=== PATIENT | female | born 1940 | race Caucasian/White ===

== ENCOUNTER 2017-11-13 13:32 | Emergency (ER) | payer MEDICARE, OTHER, SELFPAY ==
--- NOTE | 2017-11-13 13:35 | ED.GENADUL ---
Disposition Clinical Impression: Hand laceration Disposition: HOME Condition: Fair Instructions: Laceration (ED) Additional Instructions: Keep wound clean, dry, covered. Tylenol and/or ibuprofen as needed for discomfort. Keep current dressing on for the next 48 hours. After that time he may change but please keep covered with a sterile dressing. You may wash with running water but do not soak or submerge this will increase her risk of infection. Please monitor for signs of infection including redness, warmth, drainage, fever/chills, increased pain. If these arise please seek care urgently once again. Please take antibiotics as prescribed. Even if symptoms do not take the entire course. Please follow-up with primary care for wound evaluation. Please return in 10 days for suture removal. Prescriptions: Cephalexin [Keflex] 500 mg PO BID #10 cap Referrals: Carlos Bustamante [Primary Care Provider] - [facility] Emergency Dept. [Outside] Medical Decision Making - Medical Decision Making Patient presents today with chief complaint of laceration to the dorsal aspect of left hand. Patient does have a skin tear. The surrounding tissue, particularly distally is noted to be quite thin. I voiced my concern for the viability of this tissue. However, more proximal a 2.5 cm length of extensor tendon is visualized. Tendon appears to be intact. She does have good extension against resistance of the affected digits. No sensation deficit. Range of motion of the wrist is intact. Flap is irregular in shape, 9 cm in total. Tetanus 2013. I do not see any bony involvement. Patient and I discussed the risk/benefits as well as expected procedural steps of closure. She was understanding and wishes to proceed. Procedure note: Using standard sterile technique, 2% lidocaine plain was used to anesthetize the area. A total of 10 cc was used the wound is then copiously irrigated with sterile saline and cleansed chlorhexidine. Wound was explored to base in a bloodless field. No foreign body or debris was noted. The flaps were realigned. #13 simple interrupted sutures were placed using 5-0 nylon. Patient tolerated this well. Patient tolerated procedure well. Sterile dressing was placed by nursing staff. Compressive dressing was placed over this. I am concerned that she was to develop a hematoma under the area it may further contribute to poor viability of the affected flap. I thus far for her to follow-up with primary care next week. She will return in 10 days for suture removal. Encourage rest and elevation of the extremity. Tylenol and/or ibuprofen as needed for discomfort. We discussed care of wound. We discussed activities that she should avoid it that will place undue stress on the wound and place her at high risk for infection. We discussed signs symptoms of infection in depth and when to seek care urgently once again. We discussed the need for her to wear gloves. Given the depth of the wound and and how this was sustained, I feel that antibiotics is appropriate at this time. Patient will be placed on oral Keflex. All of her questions and concerns were addressed and she is in agreement with this plan. History of Present Illness - General Stated complaint: LEFT HAND LACERATION Time Seen by Provider: 11/13/17 13:34 Source: patient, RN notes reviewed Mode of arrival: ambulatory Limitations: no limitations - History of Present Illness Initial comments: Patient is a 77-year-old [id number] female presenting today with chief complaint of laceration to the dorsal aspect of her left hand. She reports a prior to arrival while working with her goat, ago caught her with a horn causing shearing injury to the hand. Patient immediately noted tendon under the torn back skin. She denies any altered sensation. She feels she is good range of motion. States that she feels swollen around the area and into the dorsal aspect of the wrist. Denies other injury the time of the incident. Unknown tetanus status - Related Data Calcium Citrate/Vitamin D2 [Calcium Citrate with Vit D Tab] 1 each PO DAILY 09/27/12 Multivitamin [Multivitamins] 1 each PO DAILY 09/27/12 Fluticasone Propionate [Flonase] 16 gm NS BID PRN #1 script 06/04/15 Acetaminophen 1 tab PO tid prn 10/16/15 Nystatin Powder 60 GM [Mycostatin Powder] 1 gm TP BID PRN #60 gm 07/09/16 Cholecalciferol (Vitamin D3) [Vitamin D3] 2,000 unit PO BID 12/22/16 Cyanocobalamin (Vitamin B-12) [Vitamin B12] 2,500 mcg PO DAILY 12/22/16 Omeprazole 40 mg PO DAILY@0730 #90 capcr 02/09/17 Ranitidine HCl 300 mg PO HS #90 tab 02/09/17 Oxybutynin Chloride 5 mg PO HS #90 tab-cap 04/07/17 Paroxetine HCl [Paxil] 20 mg PO DAILY #90 tab-cap 04/07/17 Pravastatin Sodium 20 mg PO DAILY #90 tab-cap 04/07/17 Cephalexin 2,000 mg PO ONCE #4 tab-cap 09/29/17 Gabapentin 600 mg PO TID #270 tab-cap 09/29/17 Losartan [Cozaar] 100 mg PO DAILY #90 tab-cap 09/29/17 Cephalexin [Keflex] 500 mg PO BID #10 cap 11/13/17 Allergies Allergy/AdvReac Type Severity Reaction Status Date / Time Penicillins Allergy Unknown SKIN RASH Unverified 11/13/17 13:40 Review of Systems Constitutional: no symptoms reported Respiratory: no symptoms reported Musculoskeletal: as per HPI Skin: as per HPI Neurological: as per HPI Past Medical History - Past Medical History Surgery CKD, depression, diabetes, hypertension, murmur, hyperlipidemia, reflux, adenoma of colon, anemia, goiter Surgical history: other (Bilateral TKA) General Exam - General Limitations: no limitations General appearance: alert, in no apparent distress - Eye Eye exam: Present: normal apperance - Respiratory Respiratory exam: Present: normal lung sounds bilaterally. Absent: respiratory distress - Cardiovascular Cardiovascular Exam: Present: regular rate, normal rhythm, normal heart sounds - Extremities Exam Extremities exam: Present: full ROM, tenderness, normal capillary refill. Absent: normal inspection (Exam of the patient's left upper extremity is significant for a anterior to the dorsal aspect of the hand. Laceration is approximately 9 cm in length. Wound is a flap with fairly thin wound edges particularly distally. Exam concern for viability of the tissues already darkening. Extensor tendon of the index finger is easily visualized in the open wound. She does have good extension of the MCP, DIP and PIP against resistance of the afflicted finger. Sensation is intact in the hand. She is full range of motion in the wrist. No surrounding erythema. No discharge. Wound is not actively bleeding.), joint swelling - Neurological Exam Neurological exam: Present: alert, normal gait. Absent: motor sensory deficit - Psychiatric Psychiatric exam: Present: normal affect, normal mood - Skin Skin exam: Absent: intact (As above)
[2017-11-13 13:37] VITALS: BP 169/63; PULSE 75; RESP 18; TEMP 36.7; O2SAT 97
--- NOTE | 2017-11-13 16:58 | NUR.NOTE ---
Nursing Note: Patient continues to deny return of mid-sternal pressure/pain. No SOB, no nausea, VSS. Afib with occasional PVC's. Skin warm/dry/pink. Aware of pending admission to [facility]
== END 2017-11-13 16:31 | disposition home or self-care (01) ==
PROVIDERS: Emergency Provider Emergency Medicine; PCP Family Medicine
DX: S61.412A Laceration without foreign body of left hand, initial encounter (principal); W55.39XA Other contact with other hoof stock, initial encounter; E11.22 Type 2 diabetes mellitus with diabetic chronic kidney disease; I12.9 Hypertensive chronic kidney disease with stage 1 through stage 4 chronic kidney disease, or unspecified chronic kidney disease; N18.9 Chronic kidney disease, unspecified; Z96.653 Presence of artificial knee joint, bilateral
CPT/HCPCS: 12004 ×2; 99283 ×2

== ENCOUNTER 2017-11-23 09:11 | Emergency (ER) | payer MEDICARE, OTHER, SELFPAY ==
[2017-11-23 09:14] VITALS: BP 116/57; PULSE 55; RESP 16; TEMP 36.8; O2SAT 94
--- NOTE | 2017-11-23 09:45 | W.ED.GENAD ---
Discharge Plan Discharge Details Chief Complaint: SutureRem Clinical Impression: Encounter for removal of sutures Reason For Visit: SUTURE REMOVAL Primary Care Provider: Carlos Bustamante ED Provider: Diane Andrews Disposition Patient Disposition: HOME Condition: Stable Home Meds and New Rx's Prescriptions: Continue multivitamin 1 EACH tablet 1 ea PO DAILY RF: 0 calcium citrate-vitamin D2 1 EACH tablet 1 ea PO DAILY RF: 0 fluticasone 16 GM spray,suspension 16 gm NS BID PRNQty: 1 RF: 4 acetaminophen 500 MG tablet 1 tab PO tid prn RF: 0 nystatin 60 GM powder 1 gm Topical BID PRNQty: 60 RF: 3 cholecalciferol (vitamin D3) [Vitamin D3] 2,000 UNIT capsule 2,000 unit PO BID RF: 0 cyanocobalamin (vitamin B-12) 2,500 MCG tablet 2,500 mcg PO DAILY RF: 0 ranitidine HCl 300 MG tablet 300 mg PO HS Qty: 90 RF: 3 omeprazole 40 MG capsule,delayed release(DR/EC) 40 mg PO DAILY@0730 Qty: 90 RF: 3 paroxetine HCl [Paxil] 20 MG tablet 20 mg PO DAILY Qty: 90 RF: 4 pravastatin 20 MG tablet 20 mg PO DAILY Qty: 90 RF: 3 oxybutynin chloride 5 MG tablet 5 mg PO HS Qty: 90 RF: 4 gabapentin 600 MG tablet 600 mg PO TID Qty: 270 RF: 1 losartan 100 MG tablet 100 mg PO DAILY Qty: 90 RF: 3 ciprofloxacin HCl [Cipro] 500 MG tablet 500 mg PO BID 10 Days Qty: 20 RF: 0 doxycycline hyclate 100 MG capsule 100 mg PO BID Qty: 14 RF: 0 Discontinued cephalexin 500 MG tablet 2,000 mg PO ONCE Qty: 4 RF: 0 Discharge Instructions Instructions: Laceration (ED), Stitches Removal (ED) Additional Instructions: Please return immediately to the emergency department if you develop any new or worsening symptoms or should become otherwise concerned. It is extremely important that you finish your current course of antibiotics. Is also extremely important that you follow-up with your primary care doctor within 1-2 weeks as we discussed Referrals: Carlos Bustamante [Primary Care Provider] - Discharge Data Discharge Date/Time-TO BE ENTERED AT DEPARTURE: 11/23/17 10:04 Medical Decision Making MDM Narrative Medical decision making narrative: Norma Kemp is a 77 y/o woman with h/o DM, HTN, HLD, CKD presenting to the emergency department for suture removal after laceration repair from wound from goat horn on 11/13, currently taking doxy/cipro for wound-related cellulitis. On exam no evidence of nerve injury, abscess, worsening infection, wound dehiscence. 13 sutures removed without issue. Lengthy discussion with Pt re: RTED precautions and importance of outpt f/u with PCP and finishing current course of abxs. Pt is amenable to the plan. Medical Records Medical records reviewed: Yes I reviewed the patient's medical records. HPI - General Adult General Mode of arrival: ambulatory. Date/Time Provider Initiated Documentation: 11/23/17 09:31. Limitations to Documentation: no limitations. Information obtained by: patient, RN notes reviewed and old records reviewed. HPI Narrative-FOR DICTATION ONLY HPI Narrative: Norma Kemp is a 77 y/o woman with h/o NIDDM, HTN, HLD, CKD presenting to the emergency department for suture removal. Pt reports that she was seen here on 11/13 for laceration of her left hand she sustained from a horn of her goat while caring for it. There were no other injuries. Pt was placed on keflex and had 13 sutures placed. Pt reports that after laceration repair she noticed mild increasing redness around the wound. She was seen several days after wound repair in follow-up by her PCP, who discontinued keflex and started cipro/doxy out of concern for early cellulitis with wound from goat. Pt reports that since change in abx she has been doing well. Redness has been improving. She has had no pain or drainage from the wound. No n/t or weakness of the digits. She has felt overall very well with no fever or other systemic symptoms. Has a few days left of cipro/doxy rxs, which she has bee taking as prescribed. Related Data Home Medications Medication Instructions Recorded Confirmed calcium citrate-vitamin D2 1 ea PO DAILY 09/27/12 11/23/17 multivitamin 1 ea PO DAILY 09/27/12 11/23/17 acetaminophen 1 tab PO tid prn 10/16/15 11/23/17 cholecalciferol (vitamin D3) 2,000 unit PO BID 12/22/16 11/23/17 [Vitamin D3] cyanocobalamin (vitamin B-12) 2,500 mcg PO DAILY 12/22/16 11/23/17 Allergies Allergy/AdvReac Type Severity Reaction Status Date / Time Penicillins Allergy Unknown SKIN RASH Unverified 11/23/17 09:23 clindamycin AdvReac Intermediate Diarrhea Unverified 11/23/17 09:23 General Stated Complaint: SutureRem MAGI: 5 Review of Systems Constitutional Denies fever(s) Eyes Patient Denies eye pain ENT Denies facial pain and Denies neck pain Cardiovascular Denies chest pain and Denies dyspnea Respiratory Denies cough and Denies dyspnea Gastrointestinal Denies abdominal pain, Denies diarrhea and Denies vomiting Musculoskeletal Denies back pain, Denies myalgias, Denies arthralgias, Denies neck pain, Denies numbness and Denies tingling Integumentary/Breasts Denies rash Neurologic Denies focal weakness, Denies numbness and Denies tingling Endocrine Denies polyphagia and Denies polydipsia PFSH Family History Mother Essential hypertension Pulmonary emphysema Asthma Father Essential hypertension Personal history of malignant neoplasm Hypercholesterolemia Hyperlipidemia Sister Personal history of malignant neoplasm Cerebrovascular accident Brother Essential hypertension Heart disease Hypercholesterolemia Hyperlipidemia Grandfather Heart disease Grandfather Heart disease Grandmother Diabetes Heart disease Grandmother Essential hypertension Heart disease Hyperlipidemia Cerebrovascular accident Medical History Anemia Cataracts, bilateral Depression Diabetes type 2, controlled Heart murmur Hyperlipidemia Hypertension Morbid obesity with BMI of 40.0-44.9, adult Multinodular goiter Renal insufficiency Rhinitis Rosacea Urge incontinence of urine Social History Smoking/Tobacco Use Status: Former Tobacco Use Surgical History Colonoscopy - MAC (01/07/16) EGD - MAC (01/07/16) Extraction of cataract Ligation of fallopian tube (~1970) Replacement of total knee joint Tonsillectomy (~194) eye laser surgery (08/03/15) Exam Const General: cooperative, healthy appearing, comfortable, no acute distress and not ill appearing Orientation: alert and awake [facility] Head: normal to inspection, normocephalic and atraumatic Mouth: moist mucous membranes Eyes Conjunctivae: conjunctivae normal Sclera: sclerae normal Pupils: pupil size (3mm) bilaterally Neck Neck: normal visual inspection and trachea midline Resp Effort & Inspection: normal respiratory effort and able to speak in complete sentences Auscultation: clear to auscultation bilaterally Cardio Rate: regular rate Rhythm: regular rhythm Heart Sounds: no murmurs Skin Other: Left palm wound with sutures intact. 3mm surrounding erythema, Pt reports as much improved from prior. No drainage, fluctuance, edema. Neuro General: alert and awake Other: grossly non-focal Psych Appearance: grossly normal Mental Status: mental status grossly normal Mood: congruent mood Affect: normal affect Course Vital Signs Temperature 36.8 C 11/23/17 09:14 Pulse 55 L 11/23/17 09:14 Respiratory Rate 16 11/23/17 09:14 Blood Pressure 116/57 L 11/23/17 09:14 Pulse Oximetry 94 L 11/23/17 09:14 Temperature 36.8 C 11/23/17 09:14 Pulse 55 L 11/23/17 09:14 Respiratory Rate 16 11/23/17 09:14 Blood Pressure 116/57 L 11/23/17 09:14 Pulse Oximetry 94 L 11/23/17 09:14
== END 2017-11-23 10:04 | disposition home or self-care (01) ==
PROVIDERS: Emergency Provider Student in an Organized Health Care Education/Training Program; PCP Family Medicine
DX: S61.412A Laceration without foreign body of left hand, initial encounter (principal); W55.39XA Other contact with other hoof stock, initial encounter; Z48.02 Encounter for removal of sutures; E11.22 Type 2 diabetes mellitus with diabetic chronic kidney disease; I12.9 Hypertensive chronic kidney disease with stage 1 through stage 4 chronic kidney disease, or unspecified chronic kidney disease; N18.9 Chronic kidney disease, unspecified

== ENCOUNTER 2017-12-29 08:44 | Outpatient (CLI) | payer MEDICARE, OTHER, SELFPAY ==
[2017-12-29 11:23] LABS: HCT 37.6 % (36.0-46.0); HGB 12.2 g/dL (12.0-15.5); Mean Corp. HGB Concentration 32.4 g/dL (32.0-36.0); Mean Corpuscular Hemoglobin 30.3 pg (27.0-33.0); Mean Corpuscular Volume 93.3 fL (80-95); Mean Platelet Volume 11.4 fL (8.0-11.0); Platelet Count 214 x1000/uL (130-400); RBC 4.03 m/cumm (4.00-5.20); RBC Distribution Width 12.5 % (11.7-14.6); White Blood Cell Count 5.38 k/cumm (4.4-10.8)
[2017-12-29 11:38] LABS: CREATININE 1.15 mg/dL (0.55-1.02); Estimated GFR 45.64 (mL/min/1.73m2); Magnesium 2.4 mg/dL (1.8-2.4)
== END 2017-12-29 09:04 ==
PROVIDERS: PCP Family Medicine; Visit Provider Family Medicine
DX: M25.531 Pain in right wrist (principal); M25.532 Pain in left wrist; R53.83 Other fatigue; K21.0 Gastro-esophageal reflux disease with esophagitis
CPT/HCPCS: 36415; 85027; 82565; 83735

== ENCOUNTER 2018-06-29 09:49 | Outpatient (CLI) | payer MEDICARE, OTHER, SELFPAY ==
[2018-06-29 12:48] LABS: Hemoglobin A1C 6.9 % (4.5-6.2)
[2018-06-29 12:50] LABS: Cholesterol 182 mg/dL (50-200); HDL Cholesterol 46 mg/dL (40-60); LDL CHOLESTEROL 109 mg/dL (<100); Potassium 4.6 mmol/L (3.5-5.1); Triglyceride 131 mg/dL (30-150)
== END 2018-06-29 10:09 ==
PROVIDERS: PCP Family Medicine; Visit Provider Family Medicine
DX: E11.9 Type 2 diabetes mellitus without complications (principal)
CPT/HCPCS: 36415; 80061; 83721; 83036; 84132

== ENCOUNTER 2018-07-02 19:21 | Emergency (ER) | payer MEDICARE, OTHER, SELFPAY ==
[2018-07-02 19:27] VITALS: BP 211/50; PULSE 62; RESP 20; TEMP 36.6; O2SAT 98
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
--- NOTE | 2018-07-02 20:09 | DI.CT_ITS ---
SYMPTOM./DIAGNOSIS: ANTERIOR FACIAL INJURY, PAIN NONCONTRAST HEAD CT: A noncontrast cranial CT was performed. There is a large scalp hematoma frontally and there is moderately displaced nasal fracture. Please see accompanying maxillofacial CT. The orbital structures appear intact. There is no evidence of acute intracranial hemorrhage, mass effect or midline shift. No calvarial fracture identified. Mastoid air cells and paranasal sinuses are clear. CONCLUSION: No evidence of acute intracranial injury. MAXILLOFACIAL CT: CT examination of the maxillofacial region was performed utilizing multi slice imaging and multi planar reconstruction. There is a moderately displaced nasal fracture. No additional facial fracture identified. Orbital sidhu and orbital contents appear intact. Paranasal sinuses are well aerated. Mandible appears intact. Visualized tracheolaryngeal structures appear intact. CONCLUSION: Nasal fracture. No acute facial fracture seen.
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
== END 2018-07-02 21:03 | disposition home or self-care (01) ==
PROVIDERS: Emergency Provider Emergency Medicine; PCP Family Medicine
DX: S02.2XXA Fracture of nasal bones, initial encounter for closed fracture (principal); S00.03XA Contusion of scalp, initial encounter; S00.432A Contusion of left ear, initial encounter; W55.32XA Struck by other hoof stock, initial encounter
CPT/HCPCS: 99284; 70450; 70486

== ENCOUNTER 2018-12-28 13:10 | Outpatient (CLI) | payer MEDICARE, OTHER, SELFPAY ==
[2018-12-28 13:59] LABS: Hemoglobin A1C 6.6 % (4.5-6.2)
[2018-12-28 14:36] LABS: CREATININE 1.33 mg/dL (0.55-1.02); Estimated GFR 38.49 (mL/min/1.73m2)
== END 2018-12-28 13:30 ==
PROVIDERS: PCP Family Medicine; Visit Provider Family Medicine
DX: E11.9 Type 2 diabetes mellitus without complications (principal); I10 Essential (primary) hypertension
CPT/HCPCS: 36415; 82565; 83036

== ENCOUNTER 2019-04-05 10:57 | Outpatient (CLI) | payer MEDICARE, OTHER, SELFPAY ==
[2019-04-05 13:06] LABS: Abs Immature Grans 0.01 k/cumm (0.0-0.09); Absolute Basophil Count 0.03 k/cumm (0.0-0.2); Absolute Eosinophil Count 0.15 k/cumm (0.0-0.7); Absolute Lymphocyte Count 0.94 k/cumm (1.2-3.4); Absolute Monocyte Count 0.54 k/cumm (0.11-0.7); Absolute Neutrophil Count 2.64 k/cumm (1.2-6.7); Basophils % 0.7; Eosinophils % 3.5; HCT 35.6 % (36.0-46.0); HGB 11.2 g/dL (12.0-15.5); Immature Grans % 0.2 %; Lymphocytes % 21.8; Mean Corp. HGB Concentration 31.5 g/dL (32.0-36.0); Mean Corpuscular Hemoglobin 29.2 pg (27.0-33.0); Mean Corpuscular Volume 92.7 fL (80-95); Mean Platelet Volume 10.8 fL (8.0-11.0); Monocytes % 12.5; Neutrophils % 61.3; Platelet Count 167 x1000/uL (130-400); RBC 3.84 m/cumm (4.00-5.20); RBC Distribution Width 12.8 % (11.7-14.6); White Blood Cell Count 4.31 k/cumm (4.4-10.8)
[2019-04-05 13:32] LABS: ALT 30 U/L (14-59); AST 19 U/L (15-37); Albumin 3.6 g/dL (3.4-5.0); Alkaline Phosphatase 91 U/L (46-116); BUN 27 mg/dL (7-18); Bilirubin, Total 0.3 mg/dL (0.2-1.0); CREATININE 1.21 mg/dL (0.55-1.02); Chloride 108 mmol/L (98-107); Estimated GFR 42.92 (mL/min/1.73m2); Glucose 112 mg/dL (74-106); Potassium 4.9 mmol/L (3.5-5.1); Sodium 144 mmol/L (136-145); Total Protein 6.2 g/dL (6.4-8.2)
[2019-04-05 13:55] LABS: ESR 29 mm/hr (0-30)
== END 2019-04-05 11:17 ==
PROVIDERS: PCP Family Medicine; Visit Provider Family Medicine
DX: D64.9 Anemia, unspecified (principal); R51 Headache; R19.7 Diarrhea, unspecified
CPT/HCPCS: 36415; 80053; 85652; 85025

== ENCOUNTER 2019-10-18 11:35 | Outpatient (CLI) | payer MEDICARE, OTHER, SELFPAY ==
[2019-10-18 12:37] LABS: MCH 29.7 pg (27.0-33.0); MCHC 32.4 % (32.0-36.0); MCV 91.9 fL (80-95); MPV 11.5 fL (8.0-11.0); Platelet Count 184 10^3/uL (130-400); RDW 12.5 % (11.7-14.6); WBC 5.38 10^3/uL (4.4-10.8)
[2019-10-18 12:47] LABS: CREATININE 1.32 mg/dL (0.55-1.02); Estimated GFR 38.72 (mL/min/1.73m2); Potassium 4.5 mmol/L (3.5-5.1)
[2019-10-18 13:17] LABS: Hemoglobin A1C 6.6 % (3.8-5.6)
== END 2019-10-18 11:55 ==
PROVIDERS: PCP Family Medicine; Visit Provider Family Medicine
DX: I10 Essential (primary) hypertension (principal); R73.9 Hyperglycemia, unspecified; R53.1 Weakness
CPT/HCPCS: 36415; 85027; 82565; 83036; 84132

== ENCOUNTER 2019-10-24 00:38 | Outpatient (CLI) | payer MEDICARE, OTHER, SELFPAY ==
--- NOTE | 2019-10-24 06:45 | DI.NM_ITS ---
APPROVED REPORT Exam: Pharmacologic Patient Location: Out-Patient Room/Bed: Stress Nurse: Patricia Tyson RN BMI: 40.61 Baseline Rhythm: Sinus Rhythm Indications: Dyspnea on exertion. Medical History Medical History: HTN, Hyperlipidemia, Diabetes Cardiac Medications: Losartan potassium. Pravastatin. Allergies: Penicillins. Cardiac Risk Factors: HTN, Hyperlipidemia, Diabetes (non-insulin) Pretest Chest Pain Characteristics: No chest pain Exercise History: Physically active Physical Disabilities: Legs Lung Sounds: Clear to auscultation Heart Sounds: Regular Stress Test Details Test: Pharmacologic stress testing performed using 0.4 mg of regadenoson per 5 mL given IV over 10 s econds. Nuclear Acquisition: Rest Tc-99m/Stress Tc-99m 1 day Rest Isotope: Tc-99m Sestamibi. Dose: 12.1 Date: 10/24/2019 Injection Time: 1040 Stress Isotope: Tc-99m Sestamibi. Dose: 36.6 Date: 10/24/2019 Injection Time: 1222 HR Resting HR Supine: 60 bpm Max Heart Rate (APMHR): 140 bpm Target HR (85% APMHR): 119 bpm BP Resting BP Supine: 130/70 mmHg ECG Resting ECG: Sinus Rhythm Ectopy: None Stress ECG: Sinus Rhythm Arrhythmia: None Recovery ECG: Sinus Rhythm Recovery Arrhythmia: None Stress ECG Conclusion 1. Is a pharmacological stress test. 2. The patient had no symptom suggestive of ischemia. 3. The ECG portion of this exam is nondiagnostic. Stress Test Summary STAGE HR BP Symptoms NOTES Supine 60 130/70 1 min post Lexiscan injection 78 126/58 3 min post Lexiscan injection 74 128/68 6 min post Lexiscan injection 72 132/66 MPI Conclusion Ejection fraction was 61% with stress. There were no wall motion abnormalities. There is a small partially reversible perfusion defect of the apex and apical lateral wall though bay dy is not of optimal quality and likley represents artifact. This is likely a normal stress test. Radiologist Interpretation Radiologist agrees with Chronic Condition Nurse's Interpretation. Radiologist Interpretation by: Sharan Cee MD Interpretation Date/Time: 10/25/2019 09:28:52
[2019-10-24] MEDS: Regadenoson 0.4 MG/5 ML SYR IVP (12:23)
== END 2019-10-24 00:58 ==
PROVIDERS: PCP Family Medicine; Visit Provider Family Medicine
DX: R07.9 Chest pain, unspecified (principal); R06.09 Other forms of dyspnea; I10 Essential (primary) hypertension; E78.5 Hyperlipidemia, unspecified; E11.9 Type 2 diabetes mellitus without complications; R94.39 Abnormal result of other cardiovascular function study
CPT/HCPCS: 78452; 93016; 93018; 93017; J2785

== ENCOUNTER → 2021-09-19 01:28 | Outpatient (CLI) | payer MEDICARE, SELFPAY ==
[2021-09-24] MEDS: Regadenoson 0.4 MG/5 ML SYR IVP (09:54)
--- NOTE | 2021-09-24 11:00 | DI.NM_ITS ---
APPROVED REPORT Exam: Pharmacologic Patient Location: Out-Patient Room/Bed: Stress Nurse: Jenelle Li RN Ordering Provider:NAPOLEON YU, Contact Number: [phone] BMI: 38.07 Baseline Rhythm: Sinus Bradycardia Comment: PACs Indications: DYSPNEA ON EXERTION, NEAR SYNCOPE Medical History Medical History: + murmur, HTN, HLD, DM, former smoker, Obesity Cardiac Medications: Losartan, Gabapentin, Omeprazole, Furosemide, Rosuvastatin, Glipizide, Potassium Chloride Allergies: PCN, Clindamycin Cardiac Risk Factors: FHX of CAD, HTN, Hyperlipidemia, DM, Smoking (former) , Obesity Previous Cardiac Procedures: None Pretest Chest Pain Characteristics: None Exercise History: Sedentary Physical Disabilities: Legs Lung Sounds: Clear to auscultation Heart Sounds: Regular, Murmur Stress Test Details Test: Exercise stress converted to pharmacologic stress due to failure to obtain a diagnostic stress test. Reason for pharmacologic stress test: changed from exercise stress test due to inability to reach t arget heart rate. Nuclear Acquisition: Rest Tc-99m/Stress Tc-99m 1 day Rest Isotope: Tc-99m Sestamibi. Dose: 10.0 Date: 09/24/2021 Injection Time: 0805 Stress Isotope: Tc-99m Sestamibi. Dose: 32.0 Date: 09/24/2021 Injection Time: 0945 HR Resting HR Supine: 51 bpm Max Heart Rate (APMHR): 138.267888 bpm Resting HR Standin bpm Target HR (85% APMHR): 117.705618 bpm Max HR Achieved: 117 bpm % of APMHR: 84.78 Recovery HR: 71 bpm BP Resting BP Supine: 168/64 mmHg Resting BP Standin/62 mmHg Max BP: 168/64 mmHg Recovery BP: 142/48 mmHg ECG Resting ECG: Sinus Bradycardia Ectopy: PACs Stress ECG: Sinus Tachycardia ST Change: Horizonta/Downslopingl ST depression Lead(s): inferior leads Maximum ST Deviation: 3 mm Arrhythmia: occasional PVC/PAC Recovery ECG: Sinus Rhythm Recovery ST Change: No significant ST segment changes noted Recovery Arrhythmia: occ PAC, PAC couplet Clinical Reason for Termination: Fatigue Stress Symptoms: Dyspnea, Leg Fatigue, General Fatigue, Chest pain Exercise duration: 05 min03 sec Highest Stage Reached: Stage 0.5: 1.7 mph at 5% grade. Exercise capacity: 3.47 METs Rate Pressure Product: [id number] Stress ECG Conclusion 1. Resting electrocardiogram was within normal limits 2. Patient underwent testing using a combination of low-level exercise and pharmacologic stress with regadenoson 3. Peak workload achieved was 3.47 METS, peak heart rate 84% of predicted for age 4. Electrocardiographic portion of the test was nondiagnostic due to inadequate heart rate 5. See MPI report Stress Test Summary STAGE Time (mins) Speed (mph) Grade (%) HR BP SYMPTOMS METS Supine 51 168/64 Standing 56 148/62 1 min post Lexiscan injection 102 152/50 3 min post Lexiscan injection 88 150/42 3/10 chest pain 6 min post Lexiscan injection 71 142/48 chest pain resolved. 0 3 1.7 0 96 162/60 MPI Conclusion Myocardial perfusion appears normal without evidence of ischemia or prior infarction Calculated EF is 12%. Wall motion appears dyssynchronous Suggest echocardiogram to better assess left ventricular systolic function if clinically indicated Radiologist Interpretation Radiologist agrees with Offal Worker's Interpretation. Radiologist Interpretation by: Joseluis Hurtado MD Interpretation Date/Time: 09/26/2021 15:33:56
== END ==
PROVIDERS: PCP Family Medicine; Visit Provider Family Medicine
DX: R06.09 Other forms of dyspnea (principal); R55 Syncope and collapse
CPT/HCPCS: 78452; 93016; 93018; 93017; J2785

== ENCOUNTER 2021-11-07 10:52 | Outpatient (CLI) | payer MEDICARE, SELFPAY ==
--- NOTE | 2021-11-07 10:52 | RT.EKG_ITS ---
APPROVED REPORT Exam: Resting ECG Reason for Exam: TAI Patient Location: O HR:55 bpm ECG Measurements Heart Rate 55 AXIS MA 160 P 36 QRSd 112 QRS 33 QT 454 T 35 QTc 435 Conclusion Sinus rhythm...normal P axis, V-rate 50- 99 Normal Electrocardiogram
== END 2021-11-07 10:53 | disposition home or self-care (01) ==
LOC: DI.CARD 10:53
PROVIDERS: PCP Family Medicine; Visit Provider Internal Medicine Cardiovascular Disease
DX: R06.00 Dyspnea, unspecified (principal)
CPT/HCPCS: 93010

== ENCOUNTER → 2021-11-07 13:20 | Outpatient (BNVA) | payer MEDICARE, SELFPAY | PROVIDERS: PCP Family Medicine; Referring Provider Family Medicine; Visit Provider Internal Medicine Cardiovascular Disease | DX: R06.09 Other forms of dyspnea (principal); E11.9 Type 2 diabetes mellitus without complications; I35.0 Nonrheumatic aortic (valve) stenosis; I10 Essential (primary) hypertension | CPT/HCPCS: 93005; 99203 ==